=== PATIENT | male | born 1965 | race American Indian/Alaskan Native ===

== ENCOUNTER 2017-11-16 09:07 | Emergency (ER) | payer OTHER ==
--- NOTE | 2017-11-16 09:52 | Emergency Department Report ---
ED Male HPI - General Chief complaint: Urogenital-Male Stated complaint: TESTICLE PAIN Time Seen by Provider: 11/16/17 09:43 Source: patient Mode of arrival: Ambulatory Limitations: No Limitations - History of Present Illness Initial comments: Mr. Vera is a 52-year-old male presents with 1 year testicular scrotal swelling. He has had scrotal and swelling for 1 year. Now he has left testicular pain over the last several days which is mild. Stated he's had persistent swelling without pain. Now he has pain. No difficulty with urination. No penile discharge. Gradual onset of symptoms. Mr. Vera has history of hypertension. However he admits that he is noncompliant with medication. He does not see a doctor on a regular basis. He denies headache. He denies blurry vision. Denies chest pain. MD Complaint: testicle pain, testicle swelling -: Gradual, year(s) (1) Location: right testicle Radiation: none Severity: mild - Related Data Previous Rx's Medication Instructions Recorded Last Taken Type cloNIDine [Catapres] 0.2 mg PO BID 30 Days #60 tablet 11/16/17 Unknown Rx Allergies Allergy/AdvReac Type Severity Reaction Status Date / Time No Known Allergies Allergy Unverified 11/16/17 09:19 ED Review of Systems ROS: Stated complaint: TESTICLE PAIN Other details as noted in HPI Comment: All other systems reviewed and negative Respiratory: denies: cough Cardiovascular: denies: chest pain Neurological: denies: headache ED Past Medical Hx - Past Medical History Hx Hypertension: Yes - Surgical History Past Surgical History?: Yes Additional Surgical History: ulcer, hernia as a child - Social History Smoking Status: Current Every Day Smoker Substance Use Type: Marijuana - Medications Home Medications: Home Medications Medication Instructions Recorded Confirmed Last Taken Type cloNIDine [Catapres] 0.2 mg PO BID 30 Days #60 tablet 11/16/17 Unknown Rx ED Physical Exam - General Limitations: No Limitations General appearance: alert, in no apparent distress - Head Head exam: Present: atraumatic, normocephalic - Eye Eye exam: Present: normal appearance - ENT ENT exam: Present: normal orophraynx, mucous membranes moist - Neck Neck exam: Present: normal inspection. Absent: meningismus - Respiratory Respiratory exam: Present: normal lung sounds bilaterally. Absent: respiratory distress, wheezes, rales, rhonchi - Cardiovascular Cardiovascular Exam: Present: regular rate, normal rhythm, normal heart sounds. Absent: systolic murmur, diastolic murmur, rubs, gallop - GI/Abdominal GI/Abdominal exam: Present: soft, normal bowel sounds. Absent: distended, tenderness, guarding, rebound - Rectal Rectal exam: Present: deferred - exam: Present: scrotal swelling, vertical testicular lie (large mobile soft mass right side of scrotum nontender no erythema no warmth size of grapefruit), other. Absent: testicular tenderness, urethral discharge, circumcision - Extremities Exam Extremities exam: Present: normal inspection - Back Exam Back exam: Present: normal inspection - Neurological Exam Neurological exam: Present: alert, oriented X3 - Psychiatric Psychiatric exam: Present: normal affect, normal mood - Skin Skin exam: Present: warm, dry, intact, normal color. Absent: rash ED Course Vital Signs 11/16/17 11/16/17 11/16/17 09:12 09:46 09:51 Temperature 98.8 F Pulse Rate 64 Respiratory Rate Blood Pressure 209/129 196/109 O2 Sat by Pulse 98 98 98 Oximetry 11/16/17 11/16/17 11/16/17 09:55 09:57 10:00 Temperature 98.6 F Pulse Rate Respiratory 16 Rate Blood Pressure 196/109 203/111 O2 Sat by Pulse 99 98 Oximetry 11/16/17 11/16/17 11/16/17 10:10 10:45 10:51 Temperature Pulse Rate 52 L 49 L Respiratory 12 Rate Blood Pressure 203/111 193/118 193/118 O2 Sat by Pulse 96 98 Oximetry 11/16/17 11/16/17 11/16/17 10:55 11:00 11:05 Temperature Pulse Rate 49 L 52 L 46 L Respiratory 10 L 18 20 Rate Blood Pressure 193/118 196/134 196/134 O2 Sat by Pulse 98 98 98 Oximetry 11/16/17 11/16/17 11/16/17 11:11 11:15 11:21 Temperature Pulse Rate 47 L 51 L 48 L Respiratory 13 12 12 Rate Blood Pressure 196/134 205/130 203/111 O2 Sat by Pulse 98 99 98 Oximetry 11/16/17 11/16/17 11/16/17 11:25 11:30 11:31 Temperature Pulse Rate 46 L 48 L 52 L Respiratory 14 22 Rate Blood Pressure 203/111 204/128 205/130 O2 Sat by Pulse 98 99 Oximetry 11/16/17 11/16/17 11/16/17 11:35 11:41 11:45 Temperature Pulse Rate 49 L 46 L 49 L Respiratory 12 17 16 Rate Blood Pressure 204/128 204/128 197/126 O2 Sat by Pulse 100 98 100 Oximetry 11/16/17 11/16/17 11/16/17 11:51 11:55 12:00 Temperature Pulse Rate 52 L 54 L 50 L Respiratory 23 14 15 Rate Blood Pressure 197/126 197/126 181/113 O2 Sat by Pulse 99 99 98 Oximetry ED Medical Decision Making - Lab Data Result diagrams: 11/16/17 09:28 11/16/17 09:28 Laboratory Results - last 24 hr 11/16/17 11/16/17 11/16/17 09:28 09:28 12:04 WBC 4.8 RBC 4.32 Hgb 13.6 Hct 40.1 MCV 93 MCH 32 MCHC 34 RDW 14.3 Plt Count 159 Lymph % (Auto) 26.6 [place] % (Auto) 6.2 Eos % (Auto) 3.1 Baso % (Auto) 1.3 Lymph # 1.3 Jackson # 0.3 Eos # 0.1 Baso # 0.1 Seg Neutrophils % 62.8 Seg Neutrophils # 3.0 Sodium 142 Potassium 3.9 Chloride 101.6 Carbon Dioxide 29 Anion Gap 15 BUN 17 Creatinine 1.9 H Estimated GFR 46 BUN/Creatinine Ratio 9 Glucose 96 Calcium 9.0 Urine Color Yellow Urine Turbidity Clear Urine pH 6.0 Ur Specific [place] 1.015 Urine Protein <15 mg/dl Urine Glucose (UA) Neg Urine Ketones Neg Urine Blood Neg Urine Nitrite Neg Urine Bilirubin Neg Urine Urobilinogen < 2.0 Ur Leukocyte Esterase Neg Urine WBC (Auto) 4.0 Urine RBC (Auto) 2.0 U Epithel Cells (Auto) < 1.0 Hyaline Casts 3 Vital Signs - 24 hr 11/16/17 11/16/17 11/16/17 09:12 09:46 09:51 Temperature 98.8 F Pulse Rate 64 Respiratory Rate Blood Pressure 209/129 196/109 O2 Sat by Pulse 98 98 98 Oximetry 11/16/17 11/16/17 11/16/17 09:55 09:57 10:00 Temperature 98.6 F Pulse Rate Respiratory 16 Rate Blood Pressure 196/109 203/111 O2 Sat by Pulse 99 98 Oximetry 11/16/17 11/16/17 11/16/17 10:10 10:45 10:51 Temperature Pulse Rate 52 L 49 L Respiratory 12 Rate Blood Pressure 203/111 193/118 193/118 O2 Sat by Pulse 96 98 Oximetry 11/16/17 11/16/17 11/16/17 10:55 11:00 11:05 Temperature Pulse Rate 49 L 52 L 46 L Respiratory 10 L 18 20 Rate Blood Pressure 193/118 196/134 196/134 O2 Sat by Pulse 98 98 98 Oximetry 11/16/17 11/16/17 11/16/17 11:11 11:15 11:21 Temperature Pulse Rate 47 L 51 L 48 L Respiratory 13 12 12 Rate Blood Pressure 196/134 205/130 203/111 O2 Sat by Pulse 98 99 98 Oximetry 11/16/17 11/16/17 11/16/17 11:25 11:30 11:31 Temperature Pulse Rate 46 L 48 L 52 L Respiratory 14 22 Rate Blood Pressure 203/111 204/128 205/130 O2 Sat by Pulse 98 99 Oximetry 11/16/17 11/16/17 11/16/17 11:35 11:41 11:45 Temperature Pulse Rate 49 L 46 L 49 L Respiratory 12 17 16 Rate Blood Pressure 204/128 204/128 197/126 O2 Sat by Pulse 100 98 100 Oximetry 11/16/17 11/16/17 11/16/17 11:51 11:55 12:00 Temperature Pulse Rate 52 L 54 L 50 L Respiratory 23 14 15 Rate Blood Pressure 197/126 197/126 181/113 O2 Sat by Pulse 99 99 98 Oximetry - EKG Data 11/16/17 09:54 EKG obtained at 0295 Sinus bradycardia rate of 50 bpm normal axis normal intervals positive LVH present with diffuse T-wave abnormalities due to LVH - Medical Decision Making 1. Right-sided testicular mass: large hydrocele, patient given reassurance 2. Hypertensive urgency: clonidine and lisinopril briefly decreased blood pressure 3. Renal insufficiency: suspected to be chronic with hx of untreated hypertension rx: clonidine referred to clinic Critical care attestation.: If time is entered above; I have spent that time in minutes in the direct care of this critically ill patient, excluding procedure time. ED Disposition Clinical Impression: Hydrocele, Hypertensive urgency, Renal insufficiency Disposition: DC-01 TO HOME OR SELFCARE Is pt being admited?: No Does the pt Need Aspirin: No Condition: Stable Instructions: Hypertension (ED), Impaired Kidney Function (ED) Prescriptions: cloNIDine [Catapres] 0.2 mg PO BID 30 Days #60 tablet Referrals: PRIMARY CARE, [Primary Care Provider] - 3-5 Days [facility] [Outside] - 3-5 Days Time of Disposition: 13:10
[2017-11-16 09:55] LABS: Basophils # (Auto) 0.1 K/mm3 (0.0-0.1); Basophils % (Auto) 1.3 % (0.0-1.8); Eosinophils # (Auto) 0.1 K/mm3 (0.0-0.4); Eosinophils % (Auto) 3.1 % (0.0-4.3); Hematocrit 40.1 % (35.5-45.6); Hemoglobin 13.6 gm/dl (11.8-15.2); Lymphocytes # (Auto) 1.3 K/mm3 (1.2-5.4); Lymphocytes % (Auto) 26.6 % (13.4-35.0); Mean Corpuscular HGB Conc 34 % (32-34); Mean Corpuscular Hemoglobin 32 pg (28-32); Mean Corpuscular Volume 93 fl (84-94); Monocytes # (Auto) 0.3 K/mm3 (0.0-0.8); Monocytes % (Auto) 6.2 % (0.0-7.3); Platelet Count 159 K/mm3 (140-440); Red Blood Count 4.32 M/mm3 (3.65-5.03); Red Cell Distribution Width 14.3 % (13.2-15.2)
[2017-11-16] MEDS: ZESTRIL PO ONE (10:10)
--- NOTE | 2017-11-16 10:49 | Ultrasound Report ---
ULTRASOUND TESTICULAR DOPPLER COMPLETE History: Right scrotal mass. Technique: Trans-scrotal ultrasound with spectral doppler interrogation. Findings: Both testes and epididymides are normal size, contour and echotexture.No mass or pathologic calcifications. Doppler interrogation depicts symmetric arterial flow to both testes. There is a large simple appearing right hydrocele. IMPRESSION: Large right hydrocele.
[2017-11-16] MEDS ORDERED: CATAPRES ONE ×2 (11:24)
[2017-11-16] MEDS: CATAPRES PO ONE (11:31)
[2017-11-16 12:18] LABS: Bilirubin,Urine NEG (Negative); Blood,Urine NEG (Negative); Color,Urine Yellow (Yellow); Hyaline Casts,Urine 3 /LPF; Protein,Urine <15 mg/dL mg/dL (Negative); Urobilinogen,Urine < 2.0 mg/dL (<2.0)
[2017-11-16 16:18] VITALS: BP 190/123
== END 2017-11-16 14:20 | disposition home or self-care (01) ==
LOC: ED 09:07
DX: N43.3 Hydrocele, unspecified (principal); I16.0 Hypertensive urgency; N28.9 Disorder of kidney and ureter, unspecified; I10 Essential (primary) hypertension; F17.200 Nicotine dependence, unspecified, uncomplicated; F12.10 Cannabis abuse, uncomplicated
CPT/HCPCS: 36415; 80048; 81001; 85025; 93005; 93010; 93975